=== PATIENT | female | born 1945 | race Caucasian/White ===

== ENCOUNTER 2024-04-12 13:27 | Observation (INO) ==
[~2024-04-12 13:27] MED LIST: Metoclopramide 5 MG/ML VIAL (10 mg) IV PRN; Midazolam 2 mg/2 ml VIAL 1 mg/ml 2 ml VIAL (2 mg) ONE; NS 0.45% 1000 ml BAG 1,000 ML IV SCH; Naloxone 0.4 mg VIAL 0.4 mg/ml 1 ml VIAL IV PRN; Ondansetron 4 mg VIAL 2 MG/ML 2 ml VIAL IV PRN; Propofol 10 MG/ML 20 ML BTL ONE; Propofol 10 mg/ml 100 ML BTL 0 MG/0 ML BTL ONE; Rocuronium 50 mg VIAL 10 mg/ml 5 ml VIAL (50 mg) ONE
[2024-04-12] MEDS ORDERED: Lidocaine 2% PF 5 ML VIAL ONE (13:29)
[2024-04-12] MEDS ORDERED: fentaNYL 250 mcg/5 ml 50 MCG/ML 5 ml VIAL (250 MCG) ONE (13:29)
[2024-04-12] MEDS: Buffered Lidocaine 1% SYRIN 1 ml INTRADERM ONE (14:37)
[2024-04-12] MEDS: Lactated Ringers 1000 ml BAG 1,000 ML IV SCH ×2 (14:39→23:31)
[2024-04-12] MEDS: Scopolamine 1 mg/72hr PATCH TRANSDERM ONE (14:39)
[2024-04-12] MEDS ORDERED: Lidocaine 1% w EPI 1:100,000 MDV 20 ML VIAL ONE (15:46)
[2024-04-12] MEDS ORDERED: Sterile Water for Inj 10 ML ONE (16:00)
[2024-04-12] MEDS ORDERED: ceFAZolin VIAL VIAL ONE (16:00)
[2024-04-12] MEDS ORDERED: Phenylephrine 40 mcg/mL 10mL (400mcg) SYRINGE ONE (16:14)
[2024-04-12] MEDS ORDERED: Propofol 10 MG/ML 20 ML BTL ONE (18:19)
[2024-04-12] MEDS ORDERED: Bupivacaine 0.25% SDV 30 ML ONE (19:50)
[2024-04-12] MEDS ORDERED: Magnesium Hydroxide LIQ 30 ML UDC PO PRN (20:22)
[2024-04-12] MEDS ORDERED: Lactulose 30 ml UDC PO PRN (20:22)
[2024-04-12] MEDS ORDERED: Ondansetron ODT 4 mg TAB 4 MG TAB PO PRN (20:22)
[2024-04-12] MEDS ORDERED: fentaNYL 100 mcg/2 ml 50 MCG/ML VIAL ONE ×2 (20:42→21:20)
[2024-04-12] MEDS: fentaNYL 100 mcg/2 ml 50 MCG/ML VIAL IV PRN (20:44)
[2024-04-12] MEDS: Acetaminophen IV 1 GM/100ML 1,000 MG/100 ML BAG IV ONE (22:56)
[2024-04-12] MEDS: Magnesium Hydroxide LIQ 30 ML UDC PO SCH (22:57)
[2024-04-13] MEDS: ceFAZolin 2 GM PREMIX 2 GM/50 ML BAG IV SCH (00:44)
[2024-04-13 05:59] LABS: Hematocrit 33.6 % (35-45); Hemoglobin 11.7 g/dL (11.5-14.3); Mean Platelet Volume 8.7 fL (7.5-11.2); Platelet Count 204 10^3/uL (150-450)
[2024-04-13] MEDS: Ondansetron 4 mg VIAL 2 MG/ML 2 ml VIAL IV PRN (06:13)
[2024-04-13 06:16] LABS: Creatinine, Serum 0.55 mg/dL (0.51-0.95); Potassium 3.6 mmol/L (3.5-5.0); eGFR CKD-EPI 94.9 (>60)
[2024-04-13] MEDS: Scopolamine 1 mg/72hr PATCH TRANSDERM SCH (09:01)
[2024-04-13] MEDS: Vitamin THERAPEUTIC TAB PO SCH (09:49)
[2024-04-13] MEDS: Calcium/Vitamin D TAB 250/125 TAB PO SCH (09:49)
[2024-04-13] MEDS: Prochlorperazine 5 mg/ml 2 ml VIAL (10 mg) IV PRN (10:31)
[2024-04-13] MEDS: CMCS: Mirabegron 25 mg ER TAB (NF) PO SCH (11:31)
[2024-04-14 09:31] VITALS: BP 135/61
== END 2024-04-14 10:45 | disposition home or self-care (01) ==
LOC: SSU 13:27 → OR 13:27
PROVIDERS: ADMIT Orthopaedic Surgery Sports Medicine; ATTEND Orthopaedic Surgery Sports Medicine